=== PATIENT | male | born 1940 | race Caucasian/White ===

== ENCOUNTER 2022-12-10 08:45 | Day surgery (SDC) | payer OTHER, SELFPAY ==
[2022-12-01 13:39] VITALS: BMI 24.0
[2022-12-10] VITALS (17 sets, daily range): BP systolic 107–174; BP diastolic 63–92; PULSE 58–86; RESP 11–18; TEMP 36.2–36.9; O2SAT 94–99; BMI 24.0
--- NOTE | 2022-12-10 06:00 | DI.RAD.S_ITS ---
PROCEDURE: XR KNEE LT 1TO2V INDICATIONS: TKA TECHNIQUE: 2 view(s) of the knee acquired. [facility] ARTHRITIC SERIES BI, 09/23/2022, 12:13. Outside Film, CR, XR KNEE STANDING BILATERAL, 08/24/2022, 10:40. FINDINGS: Bones: Patient is status post knee joint arthroplasty. Hardware components are in expected positions. Visualized bony structures are intact. Soft tissues: Overlying postoperative changes are noted. IMPRESSION: Expected postsurgical changes after total knee arthroplasty. Dictated by: Gretchen Barnett M.D. on 12/10/2022 at 16:03 Approved by: Gretchen Barnett M.D. on 12/10/2022 at 16:03
[2022-12-10] MEDS: LACTATED RINGERS 1,000 ML 42 ML IV ×2 (09:54→14:32)
[2022-12-10] MEDS: CELECOXIB 200 MG CAPSULE PO ×2 (09:56→20:44)
[2022-12-10] MEDS: ACETAMINOPHEN 325 MG TABLET 975 MG PO (09:56)
[2022-12-10 10:08] LABS: COVID19 -Nasal RAPID Negative (Negative)
--- NOTE | 2022-12-10 11:29 | PM.PREOP ---
Pre-operative Note Interval Note History & Physical reviewed/Exam performed by Physician: Yes Changes to H&P: No
[2022-12-10] MEDS: CEFAZOLIN 2 GM/100 ML PREMIX 100 ML IV ×2 (11:45→20:44)
[2022-12-10] MEDS: TRANEXAMIC ACID 1,000 MG VIAL 2000 MG INJ (11:50)
--- NOTE | 2022-12-10 12:25 | SUR.OPER ---
Supine on padded OR bed. Pillow under head, arms secured on padded armboards <90 degree abduction. Safety belt across torso. Non-operative leg secured with tape over blanket over lower leg. Operative leg secured in De[employer] positioner. Foam padded brace at thigh of operative leg.
[2022-12-10] MEDS: BUPIVACAINE LIPOSOME 266 MG/20 ML VIAL INJ (12:31)
[2022-12-10] MEDS: BUPIVACAINE 0.5% W/ EPI (PF) 30 ML VIAL INJ (12:33)
--- NOTE | 2022-12-10 16:46 | SUR.PHASEII ---
Pt transferred to room 2008 in bed by Andrei JOHNSTON with 1 belongings bag.
--- NOTE | 2022-12-10 16:50 | PM.OP.1 ---
Operative Date/Time/Diagnoses Date of procedure: 12/10/22 Time of procedure: 11:30 Pre-op diagnosis: Left knee arthritis Post-op diagnosis: same Procedure & Clinicians Procedure: Left knee arthroplasty CPT code 83411 During the operation, the services of a physician assembler surgical garment were medically indicated and necessary to provide the exposure of the operative site for the surgical procedure and to maintain the limb in a proper position to carry out the operation safely and efficiently. Without a qualified bilingual sales assistant being present this would extended the operative procedure and made the procedure technically more difficult to perform. Same procedure as scheduled: Yes Indications: Patient is an 82-year-old male with end-stage arthritis of the left knee. He failed conservative treatment. He is failed extensive treatment with braces therapy and injections. He has been indicated for total knee arthroplasty. He has been medically optimized. The risks and benefits of the procedure have been discussed with the patient and given the opportunity to ask questions. The risks of surgery include but are not limited to infection, stiffness, persistence of pain, damage to nerves and blood vessels, periprosthetic fracture,, DVT, PE, cardiopulmonary complications and . The patient expressed a thorough understanding of the risks and benefits of surgery and has elected to proceed. Consent was signed in the office. Surgeon: Stormy Mendenhall Carpenter Helper Maintenance: Brissa Jones Anesthesia Type: General, Spinal and Local Operative Notes Findings: End-stage knee arthritis. Grade for knee arthritis medial lateral and patellofemoral compartments with severe eburnated bone in the medial compartment, mild valgus pattern arthritis. Large effusion Closure Type: primary Specimen(s): none sent Prosthetic devices, grafts, tissues, transplants, or devices: [employer] cobalt chromium femur Journey 2 BCS size 6 left Journey size 4 left non porous tibial base plate Patella 35 mm x 7.5 mm, round genesis2 Poly: left size 4 9 mm bi cruciate stabilizing Estimated Blood Loss (mL): 75 Blood products transfused: none Tourniquet time (min): 108 Procedure in detail: Patient was seen in the preoperative area where the patient and site of surgery were identified in the operative knee was marked informed consent confirmed. This was the left knee. Patient received the appropriate preoperative antibiotics this was 2 g of Ancef. And other preoperative medications and was taken to the operating room placed on operating table in the supine position. Spinal anesthetic were administered. The operative extremity was then prepped and draped in the standard sterile fashion with a nonsterile tourniquet high on the thigh. Patient was placed on the green foam bolsters. A lateral post was placed at the level of the proximal thigh /trochanter area as a lateral post. Formal time-out procedure was performed confirming the patient's side and site of surgery and administration of appropriate preoperative antibiotics and implants were in the room accounted for. All were in agreement. Patient received a preoperative dose of tranexamic acid and then a 2nd dose at tourniquet release Patient was prepped and draped in the standard sterile fashion and the foot was placed into the [facility] leg michele. This was taken into high flexion and the incision was marked out over the anterior knee to the level of the medial tubercle tubercle. The Esmarch was then used for exsanguination and the tourniquet was inflated to 250 mmHg. Was made through the skin and subcutaneous tissue in high flexion this was then brought down into 30? of flexion for the medial parapatellar arthrotomy. A marker pen was used to holden the arthrotomy site for later repair. Joint fluid was evacuated. The anterior osteophytes and soft tissues were removed. Routine medial release was initially made along the medial proximal tibia with Bovie. The patella was on quite a bit of tension on attempted eversion so the quad incision was lengthened to relax it and then the patella was 1st cut using the saw sized and prepped and then subluxed throughout the case and protected. This was sized to a 35 mm button for a 7.5 mm thickness to recreate the original dimensions of the patella. Poly was removed and the protector replaced and the patella was subluxed and the knee was taken back up into flexion and attention was returned to the femur. Then the rotational landmarks of Whitesides line and the trans epicondylar axis were marked on the femur with electrocautery. Then the intramedullary guide for the femur was created. The distal femoral cut was made in 6? of valgus using the intramedullary guide with the cut setting on 2+ as the patient did have a mild preoperative flexion contracture--2 degrees. The ACL and PCL released. The proximal tibia was then cut using the intramedullary guide, taking 7 mm off the less involved side this was the medial plateau. The Juan wing was used to check the slope through the guide. Second pass was made through the tibial cut guide with the saw after the cut tibia was removed plane down about 1 more mm and further smooth then the resection surface. In extension remainders of the medial and lateral menisci were removed. The extension flexion gaps were then checked using both the flexion extension blocks. The 9 mm poly was still quite tight in this in both flexion and extension therefore 2 mm more were taken off of the tibia again the blocks were used and the 9 mm selected but fit much better without excessive tightness or any significant laxity. And was selected for a 9 mm poly femur was then sized and the rotation set using the posterior condyle referencing 3? of external rotation. This measured a size 6. Cut block was then placed and the anterior, posterior and chamfer cuts were then made. The posterior osteophytes and soft tissues were then removed. Then in extension the posterior capsule was injected with a mixture of 40 mL of 0.25% Marcaine and 20 mL of Exparel care to avoid excessive injection posterior laterally. The remainder of this was saved for the capsule and subcutaneous tissue and placed during cement curing. Attention was then returned to the tibia and this was prepared with the rotation set by the extramedullary guide. Lined up with the tibial crest and the 2nd toe. The tibial trial fit best with a size four has the medial aspect of the tibial plateau was quite narrow compared to the lateral side and this provided the best fit without overhang medially. The trial Was then pinned in place and the trial femoral components were placed. Then the intercondylar notch was cut through the femoral trial to create the box this was done with the distal than the proximal drill and then the box cut distally and then proximally. Next the insert was placed and the trial poly placed. This was stable in flexion and extension and there was a 0-135 degree range of motion. The tibia was then finished with the drill and flange cuts and then this was removed. All trials were removed. The wound and bone was irrigated with pulsatile lavage. This was then dried with a sponge. The components were verified and opened and the cement was mixed. Cement was applied to the components and then to the bone then the tibia was cemented in place 1st followed by the femur then the patella. Excess cement was removed. With care looking around the back of the knee. Remainder of the injection was injected around the capsule. trial poly was placed back in the leg was placed into extension for the patellar cementing. After this was cured approximately 15 minutes later and the dilute Betadine solution was placed for at least 3 minutes in the wound this was then irrigated out and the final poly was placed. This was a 9 mm poly. The tourniquet was released hemostasis was achieved. Final 1g of tranexamic acid was given IV at the time of tourniquet release. The capsule was closed with 1. Ethibond suture. Subcutaneous layer was closed with 3-0 Vicryl suture. Skin was closed with a running V lock suture Stratafix Monocryl type suture and Dermabond 2 separate nylon sutures were placed at the inferior aspect of the incision for extra security. An Aquacel dressing was placed. An Bob wrap was applied. Anesthetic was terminated the patient was woken from anesthesia and taken to recovery room in good condition. There no immediate complications from this procedure. The patient will be maintained on a standard total knee replacement protocol with weight-bearing as tolerated. Complications: none Post-operative Condition: stable Disposition: PACU Plan for aftercare: Weightbear as tolerated. When spinal wears off up and walking with a walker with therapy. When pain controlled and safe will discharge home. Discussed with patient this may be today or tomorrow depending on how his spinal wears off and his pain is controlled. He will follow up in 2 weeks in [facility] for a wound check. Then 6 weeks with the surgeon for x-rays. We will use aspirin 81 mg b.i.d. postoperatively for DVT prophylaxis
[2022-12-10] MEDS: VERAPAMIL 80 MG TABLET PO (18:30)
[2022-12-10] MEDS: ACETAMINOPHEN 325 MG TABLET 650 MG PO (18:30)
[2022-12-10] MEDS: LACTATED RINGERS 1,000 ML 100 ML IV (18:33)
[2022-12-10] MEDS: ASPIRIN EC 81 MG TABLET PO (20:44)
[2022-12-10] MEDS: DOCUSATE 100 MG CAPSULE PO (20:44)
[2022-12-10] MEDS: VERAPAMIL SR 180 MG TABLET PO (20:45)
[2022-12-11] MEDS: CEFAZOLIN 2 GM/100 ML PREMIX 100 ML IV (03:50)
[2022-12-11 03:59] VITALS: BP 125/66; PULSE 76; RESP 16; TEMP 36.3; O2SAT 95
[2022-12-11 05:44] VITALS: BP 125/66; PULSE 76
[2022-12-11] MEDS: VERAPAMIL 80 MG TABLET PO (05:44)
[2022-12-11] MEDS: LEVOTHYROXINE 75 MCG TABLET PO (05:45)
[2022-12-11] MEDS: ACETAMINOPHEN 325 MG TABLET 650 MG PO (05:45)
[2022-12-11 06:05] VITALS: BP 125/66; PULSE 76
[2022-12-11 08:29] VITALS: BP 115/64; PULSE 69; RESP 18; TEMP 36.2; O2SAT 94
[2022-12-11] MEDS: CELECOXIB 200 MG CAPSULE PO (08:39)
[2022-12-11] MEDS: ASPIRIN EC 81 MG TABLET PO (08:39)
[2022-12-11] MEDS: DOCUSATE 100 MG CAPSULE PO (08:39)
--- NOTE | 2022-12-11 08:41 | P.DS_ITS ---
History of Present Illness History of Present Illness Date Patient Seen: 12/11/22 Time Patient Seen: 08:41 Chief complaint: left TKA Narrative: Postop day 1 left total knee arthroplasty for end-stage left knee arthritis. Patient is doing very well. His pain is controlled. He is sitting up at bedside demonstrates range of motion about 3-90 today already. Pain is well controlled. It took a little while for his spinal to wear off yesterday so he stayed overnight for this but is doing well he has urinated. He is tolerating a p.o. diet this morning. Plan is to work with physical therapy and discharge home today. He is very impressed and pleased with his hospital stay and care. Speaks very highly of his care teams. Discharge Providers Provider Date of admission: 12/10/2022 Discharge Date: 12/11/22 Primary care physician: Aye Knight PA-C Consults: 12/10/22 16:57 Consult to Discharge Planning Routine Comment: Consult to Physical Therapy Evaluate & Treat Comment: Physician Instructions: postop TKA protocol Discharge provider: Stormy Mendenhall MD Summary Hospital Course Discharge Diagnosis: Left knee arthritis Hospital Course: Patient was admitted upstairs for a outpatient with bed observation stay for his left total knee arthroplasty. Had a general anesthetic and spinal anesthesia. Pain was controlled with spinal was solid wear off until the evening therefore patient stayed overnight for monitoring to make sure he urinated in the spinal continued to wear off. He tolerated a oral diet pain was controlled and spinal had worn off several hours later. On postoperative day 1 pain was controlled he worked with Physical therapy and was discharged home. Status at Discharge Cognitive/behavioral status at discharge: oriented Functional status at discharge: uses cane/walker Overall status at discharge: patient is progressing back to baseline Time Spent with Patient Time spent: Less than 30 minutes Exam Vital Signs (past 8 hours): - 12/11/22 03:59 12/11/22 05:44 12/11/22 06:05 Temperature 97.4 F L Pulse Rate 76 76 76 Respiratory Rate 16 Blood Pressure 125/66 125/66 125/66 Pulse Oximetry 95 Oxygen Flow Rate 0 12/11/22 08:29 Temperature 97.2 F L Pulse Rate 69 Respiratory Rate 18 Blood Pressure 115/64 Pulse Oximetry 94 Oxygen Flow Rate 0 Oxygen Delivery Method Room Air Oxygen Flow Rate 0 Narrative Exam Narrative: Alert oriented no acute distress sitting at bedside eating breakfast. Pleased with his care pleasant talkative. Breathing unlabored on room air. Heart regular rate and rhythm Left knee with Bob bandage and Aquacel in place. Bob bandage unwrapped. Aquacel was clean and dry. Demonstrates range of motion 3? to 90?. Calf is soft. Demonstrates dorsiflexion plantar flexion. Good capillary refill. Dorsal pedis and posterior tibialis pulses bilaterally thready but unchanged from baseline. Are dopplerable. Objective Imaging Knee x-ray: My impression: Postoperative two views left knee x-rays after surgery demonstrate appropriate alignment total knee arthroplasty no evidence of complications. Labs Labs: Laboratory Results - last 24 hr 12/10/22 09:53 SARS-CoV-2 (PCR) Negative [facility] Medical History BPH (benign prostatic hyperplasia) CAD (coronary artery disease) Carotid artery disease Enlarged prostate First degree AV block Hearing impaired Hemorrhoids Hypothyroidism Mitral valve regurgitation Near syncope NSTEMI (non-ST elevated myocardial infarction) (09/2016) Osteoarthritis Palpitations Pre-diabetes RBBB (right bundle branch block with left anterior fascicular block) Sleep apnea SVT (supraventricular tachycardia) Tachy-cate syndrome Surgical History Hx of appendectomy Hx of bilateral cataract extraction Hx of inguinal hernia repair (2016) Hx of tonsillectomy Social History household members: family Smoking Status: Never smoker alcohol intake: current Discharge Assessment & Plan Assessment and Plan Assessment: Left knee arthritis Postop day 1 status post left total knee arthroplasty Doing well. Plan of Treatment: Discharge home today after physical therapy. Weightbear as tolerated with walker. Work on therapy exercises. Emphasize extension of the knee as well as flexion. Follow-up in 2 weeks. Discharge Plan Discharge Plan Patient Disposition: Home Discharge orders & Medications Discharge Orders: Discharge (Order); Ordered 12/11/22 Ordered By: Stormy Mendenhall Prescriptions: New oxycodone 5 mg tablet 5 mg PO Q4H PRN (Reason: pain) Qty: 40 0RF Rx Instructions: postop exempt ondansetron 4 mg tablet,disintegrating 4 mg PO Q8H PRN (Reason: nausea and vomiting) Qty: 7 1RF aspirin 81 mg tablet,delayed release (DR/EC) 81 mg PO BID Qty: 60 0RF docusate sodium [Colace] 100 mg capsule 100 mg PO BID Qty: 30 0RF celecoxib [Celebrex] 200 mg capsule 200 mg PO BID Qty: 30 0RF acetaminophen [Tylenol Extra Strength] 500 mg tablet 500 mg PO Q6H PRN (Reason: pain) Qty: 60 0RF famotidine [Pepcid] 20 mg tablet 20 mg PO DAILY Qty: 20 0RF Continued verapamil 180 mg Tablet Extended Release 180 mg PO 2100 levothyroxine 75 mcg Tablet 75 mcg PO SEEINSTR Label Comments: 150mcg qMon, Fri, 75mcg rest verapamil 80 mg Tablet 80 mg PO BID Discontinued aspirin 325 mg Tablet 650 mg PO DAILY Follow up/Referrals: Aye Knight PA-C [Primary Care Provider] - Diet/Activity/Treatments Diet: Diet as Tolerated Activity: wbat Other treatments: Postop total knee replacement Dressing/Wound care: -Remove the Bob wrap 24-48 hours after surgery. -Keep Aquacel dressing in place until postoperative follow-up office visit. -you may see some drainage on the bandage, this is ok. If it is leaking or saturated, then the dressing can be changed to clean gauze or a clean surgical dressing from a pharmacy or reinforced with additional gauze and paper tape or dressings over the top. Otherwise, just keep dressing in place until follow up. -Okay to shower. Keep wound out of direct water stream. Shower water touching the Aquacel dressing is okay. No soaking or submerging until all the scabs fall off (approximately 6 weeks). -Please call the office if dressing becomes significantly wet, soiled, or saturated. Activities: -Weight-bearing as tolerated. Use front wheeled walker, and progress to cane when safe. -Continue with home exercises as directed by your physical therapist. Especially work on getting your knee to full extension this can be helped by putting a pillow under her heel and allowing your knee to straighten. -Elevate ?toes above the nose if you have significant swelling in your lower leg. (A wedge pillow is easiest.) -Ice your incision as needed for pain/inflammation/swelling. Protect your skin with a folded pillowcase or other wrap. Follow-up: -Follow-up with your surgeon or PA in the office in 10-14 days after surgery. -Follow-up with your surgeon 6 weeks postoperatively. Call the office if you have chest pain, shortness of breath, significant swelling that will not resolve with elevating, fever over 101?, significantly worsening pain. [facility]: [phone] You have been discharged with medications. These have already been sent to your pharmacy. Pain include pain medications: Oxycodone take 5 mg orally every 4 hours as needed for pain. If your pain is more severe you may take up to 2 or a maximum 3 pills (15 mg) every 4 hours for pain. Take the smallest dose necessary. You can also stretch the time in between doses longer if your pain is well controlled and can stop taking narcotics if controlled on the nonnarcotic medication. Narcotic medication can make you feel constipated. You can get [id number] stool softener such as docusate sodium-Colace at a pharmacy to help with this. You also have prescriptions for Celebrex 200 mg, take this medication twice a day for least the 1st 10 days after surgery to help with pain control. And acetaminophen (Tylenol) You can take 500 mg up to every 6 hours or you can take 1000 mg every 8 hours You also have a prescription for Zofran (ondansetron) this is a strong anti nausea medication that can be taken up to every 8 hours as needed for nausea Additionally will take a baby aspirin 81 mg twice a day (morning and night) to help prevent blood clots Skin/Wound/Dressing Care Report to your healthcare provider any signs of infection, such as:: chills, fever, night sweats, increased pain, unusual drainage and unusual redness Visit Report/Discharge Packet Instructions: DI for Knee Replacement Stand Alone Forms: Patient Portal/API, Stroke Signs & Symptoms Discharge Data Primary Care Provider: Aye Knight Attending Provider: Stormy Mendenhall VTE Deep Vein Thrombosis/Pulmonary Embolism Present on Admission: No
--- NOTE | 2022-12-11 09:15 | PT.IIE ---
Current Diagnoses Bilateral primary osteoarthritis of knee (12/10/22) Unilateral primary osteoarthritis, left knee (12/10/22) Surgery Performed Operation Date: 12/10/22 11:15 Actual Procedures p Total Knee Arthroplasty(Left) - Stormy Mendenhall MD Surgical History (Last Reviewed 12/11/22 @ 08:45 by Stormy Mendenhall MD) Hx of appendectomy Hx of bilateral cataract extraction Hx of inguinal hernia repair (2017) Hx of tonsillectomy Medical History (Last Reviewed 12/11/22 @ 08:45 by Stormy Mendenhall MD) BPH (benign prostatic hyperplasia) CAD (coronary artery disease) Carotid artery disease Enlarged prostate First degree AV block Hearing impaired Hemorrhoids Hypothyroidism Mitral valve regurgitation Near syncope NSTEMI (non-ST elevated myocardial infarction) (09/2016) Osteoarthritis Palpitations Pre-diabetes RBBB (right bundle branch block with left anterior fascicular block) Sleep apnea SVT (supraventricular tachycardia) Tachy-cate syndrome Physical Therapy Inpatient Evaluation/Re-Eval M1 PT/OT-IP Prior Functional Status Start: 12/11/22 13:34 Freq: NEEDED Status: Active Protocol: Document 12/11/22 09:15 AB (Rec: 12/11/22 13:48 AB [id number]) Medical Review Prior Functional Status Medical History Reviewed Yes Communication able to make needs known Mobility and Gait pt stated that he is indpeendent with all mobilities and ambulation without AD but uses a SPC for stair climbing Social History Household Members family Living Arrangements House Number of Floors (Floors) One Floor Number of Stairs To Enter/Railing? 3 steps B rails to get to the bedroom level no steps to enter Home Environment Standard Height Toilet,Tub/ Shower Home Equipment Front Wheel Walker,Straight Cane,Shower Seat with Backrest ,Hand Held Shower,Grab Bars Near Toilet,Grab Bars In Shower Additional Social History Comment pt has his son and DIL to assist him at home M2 PT-IP Current Condition Start: 12/11/22 13:34 Freq: NEEDED Status: Active Protocol: Document 12/11/22 09:15 AB (Rec: 12/11/22 13:48 AB [id number]) Physical Therapy Current Condition Current Condition Evaluation Date 12/11/22 Treatment Diagnosis s/p L TKA; difficulty in walking Onset Date 12/10/22 M3 PT-IP Subjective Start: 12/11/22 13:34 Freq: NEEDED Status: Active Protocol: Document 12/11/22 09:15 AB (Rec: 12/11/22 13:48 AB [id number]) Subjective Physical Therapy Visit Type Type Initial Evaluation Visit Start Time 09:15 Visit Stop Time 10:21 Total Visit Minutes 66 Number of FORGE UTILITY WORKER Visits 0 Physical Therapy Visit Comments Patient Comments agreeable to so PT Therapy Pain Assessment Pain When Pain Assessed At Rest Pain Present Pain Present Pain Reported Location Left Knee Intensity 2 Scale Used Numeric (0 - 10) Pain Management Techniques Apply Cold,Modification of Treatment,Re-positioning, Timing of Activity with Medications M4 PT-IP Mobility and Gait Start: 12/11/22 13:34 Freq: NEEDED Status: Active Protocol: Document 12/11/22 09:15 AB (Rec: 12/11/22 13:48 AB [id number]) PT-Bed Mobility Assessment Supine to Sit Supine to Sit Standby Assistance Sit to Supine Sit to Supine Standby Assistance PT-Transfer Assessment Sit to and From Stand Sit to and from Stand Standby Assistance,Contact Guard Assistance,1 Person Assistance,Use of Upper Extremities Equipment Transfer Assistive Device Gait Belt,Front Wheeled Walker Orthotic/Prosthetic Devices or Brace: No Transfers Transfer Destination Chair Transfer Technique ambulated Transfer Ability Level of Assist Standby Assistance,Contact Guard Assistance,1 Person Assistance,Use of Upper Extremities Comments Mobility Comments pt sitting on EOB. pt's son and DIL in room. pt completed sit<>supine SBA. able to sit on EOB SBA. completed sit to stand CGA and ambulated to the chair using FWW CGA. caregiver training conducted. educated son on how to use safety belt and how to assist pt. son was able to put safety belt on pt and assisted pt with sit to stand ambulated pt in the hallway using FWW SBA to CGA. educated pt and son on stair climbing. completed up/down using B rail CGA and cues. pt prefers to use SPC for stairs . completed up/down stair again using 1 rail +SPC. pt completed with son assisting using CGA to min A. increase unsteadiness with descending steps with slight LOB posteriorly requiring assist. educated pt on safety and recommending use of B rail and assist. family agreed. assisted pt back to his room. ambulated from w/c to chair using FWW SBA to CGA. positioned pt on the chair. ice pack provided. call light and table placed within reach . Gait Assessment Gait Gait Assistance Required: Standby Assistance,Contact Guard Assist Distance (Feet) 150 Able to Maintain Weight Bearing Status Yes During Gait Assistive Devices Assistive Device Gait Belt,Front Wheeled Walker Orthotic/Prosthetic Devices or Brace: No Gait Deviations General Gait Pattern Antalgic,Decreased Stride Length,Decreased Feet Clearance,Step-to Gait Factors Limiting Gait Function Factors Limiting Gait Function Decreased Activity Tolerance, Decreased Strength,Limited Range of Motion,Pain,Poor Balance Stair Climbing Assessment Evaluation Level of Assist On Stairs Contact Guard Assistance, Minimal Assistance Devices Stair Climbing Assistive Devices Straight Cane,Left Railing, Right Railing Technique/Endurance Stair Climbing Direction Ascend and Descend Stair Climbing Technique Step to Step Number of Steps Climbed 3 Query Text: Stair Climbing Set # Repetitions (reps) 2 Comments Stair Climbing Comments pls refer to mobility section for details PT-Balance Assessment Sitting Balance and Reactions Static Sitting Balance Ability Normal Dynamic Sitting Balance Ability Normal Standing Balance and Reactions Static Standing Balance Ability Good Dynamic Standing Balance Ability Fair Device Used FWW M5 PT-IP Objective Assessments Start: 12/11/22 13:34 Freq: NEEDED Status: Active Protocol: Document 12/11/22 09:15 AB (Rec: 12/11/22 13:48 AB [id number]) Orientation Orientation/Cognition Level of Alertness Alert Orientation Name,Place,Situation Language Function Ability Hard of Hearing Safety Awareness Decreased Safety Awareness Memory Description No Deficits Noted Gross Range of Motion Lower Extremity ROM Impairments L knee flexion: ~ 80 deg L knee extension: ~ 15 deg less to 0 Strength Lower Extremity Strength Assessment Left Impaired Hip 4-/5 Knee 4-/5 Sensation Assessment Sensation Gross Sensation WNL Muscle Tone Muscle Tone WNL Yes M6 PT-IP Treatment Start: 12/11/22 13:34 Freq: NEEDED Status: Active Protocol: Document 12/11/22 09:15 AB (Rec: 12/11/22 13:48 AB [id number]) Physical Therapy Treatment Education Education Provided Precautions,Weight Bearing Status,Post-Op Packet,Safety M7 PT-IP Assessment and Plan Start: 12/11/22 13:34 Freq: NEEDED Status: Active Protocol: Document 12/11/22 09:15 AB (Rec: 02/04/23 13:48 AB [id number]) PT Summary Assessment and Plan Potential Rehabilitation Potential Good Status of Condition at Evaluation Stable Summary Impairments Pain,ROM,Strength,Balance, Coordination,Sensation,Tone, Cognition,Bed Mobility, Transfers,Gait,Activity Tolerance Assessment Summary pt requiring SBA to CGA with ambulation using FWW. caregiver training completed and son will be able to assist pt safely. pt may go home when medically stable. Goals Bed Mobility Goal Independent Transfer Goal Independent,Front Wheeled Walker Gait Goal Independent,Front Wheel Walker Gait Distance 200 Other Goals up/down 3 steps B rails mod I Days to Meet Goals 5 Frequency of Treatment Frequency Of Treatment Twice a Day Treatment Plan Physical Therapy Treatment Plan Bed Mobility Training,Transfer Training,Gait Training, Therapeutic Exercise,Balance Retraining,Post Op Education, Discharge Planning,Hot or Cold Pack,Neuromuscular Re-ed, Coordination Retraining,Manual Therapy Weight Bearing Status Weight Bearing Status Weight Bear as Tolerated Allowed Weight Bearing Amount (enter % LLE WBAT or #) (%) Recommendations To Nursing Amount of Assist Needed 1 Person Assist Discharge Recommendations PT Discharge Recommendations Home with Assistance, Outpatient PT Transportation Needs at Discharge Private Vehicle
--- NOTE | 2022-12-11 10:37 | CM.DANOTE ---
DCP: Case received, EMR reviewed and met with patient. Son and [id number] came into the room shortly after this DC Trade Embalmer entered the room. Introduced self and role. Was able to obtain information regarding patient'a baseline activity level at home prior to surgery, as well as his current living situation. DCP assessment completed with information currently available. Patient is an 82 year old male who admitted yesterday morning to the care of the orthopedic team. PCP: CATARINO Soto at [facility]. Payer: confirmed: [facility] Ad[employer]age. Patient came to the hospital for a surgical procedure. Patient had left knee arthroplasty. He has history of left knee arthritis. Met with patient in his room, he was sitting up in bed, pleasant, alert and oriented. Son and [id number] arrived shortly after. Confirmed that patient is a , his spouse approximately a year ago. Patient then moved in with his son, Azael, and his spouse, and they reside in [facility]. At his baseline, he still drives, uses a cane when needed, and stated that there are about 3 stairs for him to navigate. P: Patient has discharge orders for home today, pending completing P.T. Almaz Tatum RN/Quality Assurance Supervisor Trim Discharge Planning/Care Management Advanced directive, confirm from FAMILY Start: 12/10/22 17:42 Freq: Q24H Status: Active Protocol: Document 12/10/22 17:42 CEW (Rec: 12/10/22 17:45 CEW [id number]) Advance Directive, confirm on record Time 17:45 Person contacted Pt\son Copy received No CM Discharge Assessment Start: 12/11/22 10:35 Freq: Status: Active Protocol: Document 12/11/22 10:35 (Rec: 12/11/22 10:37 [id number]) Discharge Planning Assessment Assigned Dimensional Engineer Almaz Tatum RN/Quality Assurance Supervisor Trim Advance Directives? Yes Advance Directives on File No History Provided By Patient,Medical Record Prior Living Arrangements House Household Members family Type of transporation used prior to Drives own vehicle admit DME Already Rented / Owned Cane Patient/Family Preference OP PT Therapy Comment Patient indicated that he is already set up with outpatient P.T. Barriers to Discharge No Discharge Plan Home Transportation Arrangement Family Referrals Initiated None needed Whiteboard Updated in Patient Room with Yes name and ext. # of Dimensional Engineer Review Status In Process Next Review Type Continued Stay Review Pre-Anesthesia Assessment Start: 12/01/22 13:39 Freq: Status: Complete Protocol: Document 12/01/22 13:39 CAB (Rec: 12/01/22 14:47 [facility] [id number]) Pre-Anesthesia Assessment Preferred Name Jan or Cameron Patient Information Reviewed Via Phone Assessment Assessment Completed With Patient Comment Labs/EKG done per pt , not here, COVID screen-needs to schedule Primary Care Provider Aye Knight Seen Specialist in Last 12 Months Yes Specialist Seen Nurse Transition,Orthopedist Primary Language Serbian Cloth Finisher Required No Height 5 ft 10.5 in Weight 170 lb Body Mass Index (BMI) 24.0 Hearing Ability Hearing Impaired Visual Assist Glasses Dentition Type Teeth, Natural Present,Teeth, Missing Barriers to Learning None Hx Anesthesia Reactions No Hx Family Anesthesia Reaction No Hx Malignant Hyperthermia No Hx Blood Transfusions No Anesthesia Review Requested No alcohol intake current alcohol intake frequency a few times a week Smoking Status Never smoker Substance Use Type does not use Pain Present Pain Reported Musculoskeletal Symptoms Arthralgias,Difficulty Walking ,Joint Pain History of Falling (Recent or History of No ) Patient is completely paralyzed or No completely immobile Prosthesis or Orthotic Device Cane Mental Status Oriented to own ability Is patient on oxygen? No Does patient have YUAN/SOB No Hx Sleep Apnea Yes: Per cardiology visit 05/31, pt reported No Currently Taking a Beta Vi No Hx Chest Pain No Hx SOB No Hx Syncope or Dizziness Yes Anti-Coagulant Therapy No Has a Nurse Transition Yes: Last visit 05/31/[address] Tee Cardiac Testing No Hx Pacemaker/ICD No Pacemaker Rep Required? No Comment Cardiac records scanned Diet Type At Home Regular Dysphagia No Gastrointestinal Symptoms Constipation Genitourinary Symptoms Dribbling Bladder Pattern Frequency,Incontinent,Urgency Urinary Catheter Present No Hx Urinary Self Catheterization No Diabetes No: Ogg-bddmcyym-sn chesks blood sugar once a month Hx Drug Resistant Organism No Presence of External or Internal Medical Yes: Bilat eye IOLs Devices Have you had any close contact with No someone diagnosed with COVID-19? Received a COVID vaccine? No Marital Status / Lives With family Current Living Arrangements House Number of Floors (Floors) One Floor Support System Child/Children Does the Patient Have Assistance After Yes: Lives with son & daughter Surgery -in-law Patient Discharge Plan Description Return Home Comment Pt advised possible same day surgery per surgeon Feels Safe in Current Environment Yes Been Physically Hurt or Threatened By a No Person in Current Environment Do you have thoughts of harming yourself None or others? Are you currently considering suicide? No Do you have a plan to hurt yourself or No Plan others? Do You Have Any Spiritual Beliefs That No May Affect Your HC Choices? Do You Have Any Cultural Practices That No May Affect Your HC Choices? Comment Jewish Who Can We Speak to About Patient's Care Family, friends Identifying Code for Release of Patient Declines to issue Information Health Care Proxy/Next of Kin Azael atwood) Health Care Proxy Emergency Contact Name Azael atwood) Emergency Contact Advance Directives? Yes Advance Directives on File No Requested Patient Bring Advanced Yes Directives DOS Power of Relocation Manager Yes Power of Relocation Manager Name Azael atwood) Power of Relocation Manager PAC Instructions Durable medical equipment, Medications to take/avoid, Nasal antibiotic,No ETOH/ petroleum product on skin DOS, NPO,Post-op transportation,Pre -surgical wash,Sensory aids, Sturdy shoes/comfortable clothes,Do not bring valuables and remove jewelry
== END 2022-12-11 11:11 | disposition home or self-care (01) ==
LOC: OR 17:07 → AC 17:08
PROVIDERS: PCP Physician Assistant; Referring Provider Orthopaedic Surgery Foot and Ankle Surgery; Visit Provider Orthopaedic Surgery Foot and Ankle Surgery
PROC: 0SRD0JZ Replacement of Left Knee Joint with Synthetic Substitute, Open Approach (ICD-10-PCS; CPT 27447; principal; 2022-12-10 11:15)
DX: M17.12 Unilateral primary osteoarthritis, left knee (principal); M21.062 Valgus deformity, not elsewhere classified, left knee; I10 Essential (primary) hypertension
CPT/HCPCS: 27447; 73560; 87635; 97161; 97530; C1776; C1713; C9290; J0690; J1100; J2405; J2704; J3010

== ENCOUNTER 2023-09-01 06:27 | Day surgery (SDC) | payer OTHER, SELFPAY ==
[2022-12-10 17:20] VITALS: BMI 24.0
[2023-08-25 08:30] VITALS: BMI 24.0
[2023-09-01] VITALS (13 sets, daily range): BP systolic 90–161; BP diastolic 58–88; PULSE 59–77; RESP 12–95; TEMP 36.1–36.7; O2SAT 94–98; BMI 24.0
--- NOTE | 2023-09-01 06:00 | DI.RAD.S_ITS ---
PROCEDURE: XR KNEE RT 1TO2V INDICATIONS: TKA TECHNIQUE: 2 view(s) of the knee acquired. COMPARISON: [facility] [place], CR, XR KNEE 4+ VIEWS RIGHT, 08/12/2023, 10:49. FINDINGS: Bones: Patient is status post knee joint arthroplasty. Hardware components are in expected positions. Visualized bony structures are intact. Soft tissues: Overlying postoperative changes are noted. There is knee joint effusion. IMPRESSION: Expected postsurgical changes. Dictated by: Gretchen Barnett M.D. on 09/01/2023 at 12:43 Approved by: Gretchen Barnett M.D. on 09/01/2023 at 12:44
[2023-09-01] MEDS: CELECOXIB 200 MG CAPSULE PO (06:59)
[2023-09-01] MEDS: ACETAMINOPHEN 325 MG TABLET 975 MG PO (06:59)
[2023-09-01] MEDS: LACTATED RINGERS 1,000 ML 42 ML IV ×2 (06:59→08:39)
--- NOTE | 2023-09-01 07:28 | PM.PREOP ---
Pre-operative Note Interval Note History & Physical reviewed/Exam performed by Physician: Yes Changes to H&P: No
--- NOTE | 2023-09-01 07:38 | P.OP_ITS ---
Operative Date/Time/Diagnoses Date of procedure: 09/01/23 Time of procedure: 08:00 Pre-op diagnosis: Right knee arthritis M17.11 Post-op diagnosis: same Procedure & Clinicians Procedure: Total knee arthroplasty, right CPT code 10833 Same procedure as scheduled: Yes Indications: The patient has significant pain associated with osteoarthritis of the right knee. It is associated with morning stiffness. Pain interferes with daily normal function including ambulation standing and any activities that are weight-bearing. It interferes with sleep. There is crepitation with range of motion. There is marked joint line tenderness. X-rays show significant levels of osteoarthritis. Double attempted previous conservative treatment has been rendered. The patient has failed exercise program, medications and previous injections. Patient is indicated for total knee arthroplasty. The risks and benefits of the procedure have been discussed with the patient and given the opportunity to ask questions. The risks of surgery include but are not limited to infection, malunion, nonunion, persistence of pain, damage to nerves and blood vessels, posttraumatic arthritis, DVT, PE, cardiopulmonary complications and . The patient expressed a thorough understanding of the risks and benefits of surgery and has elected to proceed. Consent was signed. press operator assistant statement: During the operation, the services of a physician media center assistant were medically indicated and necessary to provide the exposure of the operative site for the surgical procedure and to maintain the limb in a proper position to carry out the operation safely and efficiently. Without a qualified collections assistant being present this would extended the operative procedure and made the procedure technically more difficult to perform. Surgeon: Stormy Mendenhall Agricultural Equipment Design Engineer: Artie Landaverde Anesthesia Type: General, Peripheral nerve block and Local Operative Notes Findings: End-stage varus knee arthritis, xdka-vm-rzld arthritis large osteophytes, tricompartmental. Varus knee arthritis Closure Type: primary Specimen(s): none sent Prosthetic devices, grafts, tissues, transplants, or devices: Dumont and Nephew journey bCS II total knee arthroplasty Femur cobalt chromium size 6 Tibia size Poly 10 mm Patella 35x 7.5 Estimated Blood Loss (mL): 50 Blood products transfused: none Tourniquet time (min): 89 Procedure in detail: Patient was seen in the preoperative area where the patient and site of surgery were identified in the operative knee was marked informed consent confirmed. This was the right knee. Patient received the appropriate preoperative antibiotics this was 2 g of Ancef. And other preoperative medications and was taken to the operating room placed on operating table in the supine position. Spinal anesthetic were administered. The operative extremity was then prepped and draped in the standard sterile fashion with a nonsterile tourniquet high on the thigh. Patient was placed on the green foam bolsters. A lateral post was placed at the level of the proximal thigh /trochanter area as a lateral post. Formal time-out procedure was performed confirming the patient's side and site of surgery and administration of appropriate preoperative antibiotics and implants were in the room accounted for. All were in agreement. Patient received a preoperative dose of tranexamic acid and then a 2nd dose at tourniquet release Patient was prepped and draped in the standard sterile fashion and the foot was placed into the leg michele. This was taken into high flexion and the incision was marked out over the anterior knee to the level of the medial tubercle tubercle. The Esmarch was then used for exsanguination and the tourniquet was inflated to 250 mmHg. Was made through the skin and subcutaneous tissue in high flexion this was then brought down into 30? of flexion for the medial parapatellar arthrotomy. A marker pen was used to holden the arthrotomy site for later repair. Joint fluid was evacuated. The anterior osteophytes and soft tissues were removed. Routine medial release was initially made along the medial proximal tibia with Bovie. The patella 1st cut using the saw sized and prepped and then subluxed throughout the case and protected. The leg was then taken into extension and the patella was everted and the patella was cut to accommodate the patellar button. This was sized to a 35 mm button for a 7.5 mm thickness to recreate the original dimensions of the patella. Poly was removed and the protector replaced and the patella was sublu xed and the knee was taken back up into flexion and attention was returned to the femur. Then the rotational landmarks of Whitesides line and the trans epicondylar axis were marked on the femur with electrocautery. Then the intramedullary guide for the femur was created. The distal femoral cut was made in 6? of valgus using the intramedullary guide with the cut setting on 2+ as the patient did have a preoperative flexion contracture. The ACL and PCL released. The proximal tibia was then cut using the intramedullary guide, taking 9 mm off the less involved side this was the lateral plateau. The Juan wing was used to check the slope through the guide. Second pass was made through the tibial cut guide with the saw after the cut tibia was removed plane down about 1 more mm and further smooth then the resection surface. In extension remainders of the medial and lateral menisci were removed. The extension flexion gaps were then checked using both the flexion extension blocks. And was selected for a 9-10 mm poly. Thefemur was then sized and the rotation set using the posterior condyle referencing 2? of external rotation. As there was a little bit of gap in flexion medially. This measured a size 6. Cut block was then placed and the anterior, posterior and chamfer cuts were then made. The posterior osteophytes and soft tissues were then removed. Then in extension the posterior capsule was injected with a mixture of 40 mL of 0.25% Marcaine and 20 mL of Exparel care to avoid excessive injection posterior laterally. The remainder of this was saved for the capsule and subcutaneous tissue and placed during cement curing. Attention was then returned to the tibia and this was prepared with the rotation set by the extramedullary guide. Lined up with the tibial crest and the 2nd toe. The tibial trial was then pinned in place and the trial femoral components were placed. Then the intercondylar notch was cut through the femoral trial to create the box this was done with the distal than the proximal drill and then the box cut distally and then proximally. Next the insert was placed and the trial poly placed. This was stable in flexion and extension and there was a 0- 135 degree range of motion. The tibia was sized to a 5, then finished with the drill and flange cuts and then this was removed. All trials were removed. The wound and bone was irrigated with pulsatile lavage. This was then dried with a sponge. The components were verified and opened and the cement was mixed. Cement was applied to the components and then to the bone then the tibia was cemented in place 1st followed by the femur then the patella. Excess cement was removed. With care looking around the back of the knee. Remainder of the injection was injected around the capsule. trial poly was placed back in the leg was placed into extension for the patellar cementing. After this was cured approximately 15 minutes later and the dilute Betadine solution was placed for at least 3 minutes in the wound this was then irrigated out and the final poly was placed. This was a 10 mm poly. The tourniquet was released hemostasis was achieved. Final 1g of tranexamic acid was given IV at the time of tourniquet release. The capsule was closed with 1. Ethibond suture. Followed by the Quill stitch. Subcutaneous layer was closed with 3-0 Vicryl suture. Skin was closed with a running V lock suture Stratafix Monocryl type suture and Dermabond. Aquacel dressing was placed. An Bob wrap was applied. Anesthetic was terminated the patient was woken from anesthesia and taken to recovery room in good condition. There no immediate complications from this procedure. The patient will be maintained on a standard total knee replacement protocol with weight-bearing as tolerated. Complications: none Post-operative Condition: stable Disposition: PACU Plan for aftercare: Weightbear as tolerated, immediate range of motion, discharge when appropriately recovered and when safe ambulation. We will start outpatient physical therapy within 1 week. We will commence home exercises immediately. Follow up in 2 weeks in Orthopedic Clinic. Aspirin 81 mg b.i.d. for 6 weeks postop for DVT prophylaxis. May shower.
[2023-09-01] MEDS: CEFAZOLIN 2 GM/100 ML PREMIX 100 ML IV (07:54)
--- NOTE | 2023-09-01 08:31 | SUR.OPER ---
Supine on padded OR bed, head on pillow, arms secured on padded arm boards at <90 degrees abduction, legs uncrossed, safety belt at thigh, tape over blanket over lower legs.
[2023-09-01] MEDS: TRANEXAMIC ACID 1,000 MG VIAL 1000 MG INJ (08:34)
[2023-09-01] MEDS: BUPIVACAINE 0.25% (PF) 60 ML, EPINEPHrine 0.3 MG INJ ×2 (08:35→10:06)
[2023-09-01] MEDS: BUPIVACAINE LIPOSOME 266 MG/20 ML VIAL INJ (08:36)
--- NOTE | 2023-09-01 14:57 | SUR.PHASEII ---
Patient performed active range of motion, able to transfer with use of FWW; gait steady no dizziness reported. VSS. Patient was not able to void; patient was bladder scanned for less than 300cc. Discussed w/MD; patient instructed to call office if he has not been able to void by 1999 this evening. Discussed w/son and patient. patient discharged in stable condition.
== END 2023-09-01 14:45 | disposition home or self-care (01) ==
PROVIDERS: PCP Physician Assistant; Referring Provider Orthopaedic Surgery Foot and Ankle Surgery; Visit Provider Orthopaedic Surgery Foot and Ankle Surgery
PROC: 0SRC0JZ Replacement of Right Knee Joint with Synthetic Substitute, Open Approach (ICD-10-PCS; CPT 27447; principal; 2023-09-01 07:45)
DX: M17.11 Unilateral primary osteoarthritis, right knee (principal); G89.18 Other acute postprocedural pain; I10 Essential (primary) hypertension
CPT/HCPCS: 27447; 64450; 73560; C1776; C9290; J0171; J0690; J1100; J2405; J2704

== ENCOUNTER → 2024-04-30 14:40 | Outpatient (CLI) | payer OTHER, SELFPAY ==
[2022-12-10 17:20] VITALS: BMI 24.0
--- NOTE | 2024-04-30 | DI.ECHO.S_ITS ---
[facility] : : [id number] : : [place] : : [id number] : : Phone: [phone] Echocardiogram Report + + :Name: BHAVIN DERAS Study Date: 04/30/2024 Height: 70.5 in: :[facility] ReadingLocation: Weight: 177 lb : : Gender: Male BSA: 2.0 m2 : :: 1940 Age: 83 yrs BP: 152/83 mmHg: :Reason For Study: MITRAL VALVE PROLAPSE, MITRAL REGURGITATION : :Ordering Physician: ARMANI, : :DAMIEN Performed By: Antionette Mcclain : :Referring: DAMIEN SPRING : + + Interpretation Summary 1) Normal left ventricular thickness, size, wall motion, and systolic function (EF 55-60%). 2) Normal right ventricular size and function. 3) There is prolapse of the posterior mitral valve leaflet(s). 4) There is moderate mitral regurgitation that is anteriorly directed. 5) The right ventricular systolic pressure is estimated to be at least 42 mmHg based on an estimated right atrial pressure of 8 mm Hg. 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 7) Compared to the echo done 11/16/2023, mitral regurgitation appears more moderate on this study. Procedure: A two-dimensional transthoracic echocardiogram with color flow and Doppler was performed. The study quality was technically adequate. Comparison is made with the echocardiogram of 11/16/2023. The patient was in sinus bradycardia with heart rates between 46-53 bpm during the exam. Left Ventricle: The left ventricle is normal in size and wall thickness. The ejection fraction is estimated to be 55-60%. Right Ventricle: The right ventricle is normal in size and function. Atria: The left atrium is moderately dilated. Right atrial size is normal. There is no Doppler evidence for an interatrial shunt. Mitral Valve: There is prolapse of the posterior mitral valve leaflet(s). There is moderate mitral regurgitation. There is an eccentric jet of mitral regurgitation that is directed anteriority. MV E velocity 1.11m/s. Aortic Valve: The aortic valve is trileaflet. The aortic valve opens well. There is no aortic valve stenosis. There is mild aortic regurgitation. Tricuspid Valve: The tricuspid valve is normal in structure and function. There is mild tricuspid regurgitation. The right ventricular systolic pressure is estimated to be at least 42 mmHg based on an estimated right atrial pressure of 8 mm Hg. Pulmonic Valve: The pulmonic valve leaflets are thin and pliable; valve motion is normal. There is mild pulmonic regurgitation. Great Vessels: The aortic root is mildly dilated. 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 This suggests a right atrial pressure of 8 mm Hg. Pericardium/ Pleura There is no pericardial effusion. There is no pleural effusion. MMode/2D Measurements & Calculations LVIDd: 5.0 cm LVOT diam: 2.1 cm LVIDs: 3.1 cm Ao root diam: 4.3 cm FS: 38.4 % asc Aorta Diam: 4.3 cm IVSd: 1.1 cm Ao Arch Diam (Prox Trans): 3.5 cm LVPWd: 1.0 cm LV smith. diameter/BSA (cm/m^2): 2.5 LV sys. diameter/BSA (cm/m^2): 1.6 LA A2 area: 25.3 cm2 RA long axis: 5.8 cm LA A4 area: 19.2 cm2 RA area: 15.1 cm2 LA length (vol): 5.7 cm RA vol: 33.5 ml LA vol: 72.8 ml RA : 16.8 ml/m2 LA vol index: 36.5 ml/m2 IVC diam: 2.1 cm RVD1 (basal): 4.0 cm RVD2 (mid): 3.6 cm TAPSE: 2.5 cm Doppler Measurements & Calculations Ao V2 max: 112.2 cm/sec LVOT Max Sean: 90.4 cm/sec Ao V2 mean: 80.4 cm/sec LV V1 max P.3 mmHg Ao max P.0 mmHg LV V1 VTI: 20.7 cm Ao mean P.8 mmHg JESSIKA(I,D): 3.0 cm2 Ao V2 VTI: 24.5 cm JESSIKA(V,D): 2.9 cm2 sev ratio: 0.85 JESSIKA indexed to BSA (cm^2/m^2): 1.5 MV E max sean: 110.9 cm/sec TR max sean: 295.2 cm/sec MV A max sean: 84.6 cm/sec TR max P.9 mmHg MV E/A: 1.3 PA V2 max: 76.2 cm/sec Med Peak E' Sean: 4.3 cm/sec PA V2 mean: 59.8 cm/sec E/E' med: 26.0 PA mean P.5 mmHg Lat Peak E' Sean: 6.1 cm/sec PA pr(Accel): 19.1 mmHg E/E' lat: 18.1 E/e' average: 22.1 MV dec time: 0.25 sec SV(LVOT): 73.4 ml Reading Physician:11:06 AM
== END ==
PROVIDERS: PCP Physician Assistant; Referring Provider Internal Medicine Cardiovascular Disease; Visit Provider Internal Medicine Cardiovascular Disease
DX: I08.3 Combined rheumatic disorders of mitral, aortic and tricuspid valves (principal); I48.91 Unspecified atrial fibrillation; I47.10 Supraventricular tachycardia, unspecified; I25.10 Atherosclerotic heart disease of native coronary artery without angina pectoris; I77.810 Thoracic aortic ectasia; I77.89 Other specified disorders of arteries and arterioles
CPT/HCPCS: 93306